=== PATIENT | female | born 1990 | race Caucasian/White ===

== ENCOUNTER 2021-12-23 07:50 | Emergency (ER) | payer BC, MEDICAID ==
[2021-12-23 08:13] VITALS: BP 116/79; PULSE 86
== END 2021-12-23 10:05 | disposition home or self-care (01) ==
LOC: JD.ED 07:50
DX: R00.2 Palpitations (principal); R20.2 Paresthesia of skin; Z88.0 Allergy status to penicillin
CPT/HCPCS: 36415; 80053; 83735; 84443; 84484; 85025; 93005; 93010; 99283; 99284